=== PATIENT | female | born 1955 | race Caucasian/White ===

== ENCOUNTER → 2016-08-25 | Day surgery (SDC) | payer OTHER ==
[~2016-08-25] MED LIST: ACTOS30 MG PO; ALDACTONE25 MG PO; ALPRAZOLAM; ASPIRIN; ASPIRIN81 M1 PO; ASPIRIN81 M2 PO; ATENOLOL; ATENOLOL50 MG PO; CRESTOR PO; FLEXERIL10 M1 PO; GABAPENTIN600 MG PO; GLUCOTROL PO; GLYBURIDE-METFO1 TA4 PO; HAIR,SKIN,NAILS; JANUVIA PO; LANTUS100 U/ML SUBQ; LASIX20 MG PO; LEVOTHROID50 MCG PO; LEVOTHYROXINE50 MCG PO; LEXAPRO; LEXAPRO20 MG PO; LIPITOR20 MG PO; LODINE400 M1 PO; LORTAB 7.5-5001 TAB; LYRICA PO; MEGA BIOTIN10000 MCG PO; MELOXICAM15 MG PO; METAGLIP 2.5/501 TAB; METAGLIP 5/5001 TAB; METFORMIN HCL500 M3 PO; METFORMIN PO; MOBIC; MULTI VITAMIN1 EACH PO; NOVOLIN N100 UNIT/1; NOVOLIN N100 UNIT/1 SUBQ; NOVOLIN R100 UNITS/ SUBQ; OMNICEF300 MG PO; OSTEO BI FLEX; PANTOPRAZOLE SO40 MG PO; PHENERGAN25 MG PO; PRILOSEC20 MG PO; SERTRALINE HCL50 M1 PO; SILVADENE TOP; VITAMIN D 22000 UNIT PO; VOLTAREN50 MG PO; XANAX1 MG PO; ZESTORETIC 10/11 TAB; ZESTRIL5 MG PO
--- NOTE | ~2016-08-25 | OR ---
Unit #: [id number] #: [id number] Patient: CHERELLE RIVERA [id number] [address] [address] [id number] O MR#: [id number] NAME: CHERELLE RIVERA ROOM: Date of Procedure: 08/25/2016 Admission Date: 08/25/2016 Surgeon: Dave Remy M.D. : 1955 Attending Physician: Dave Remy M.D. Primary Care Physician: Jose Casey M.D. OPERATIVE REPORT PREOPERATIVE DIAGNOSES Back pain, radiculopathy, spinal stenosis, spondylolisthesis, degenerative disk disease. POSTOPERATIVE DIAGNOSES Back pain, radiculopathy, spinal stenosis, spondylolisthesis, degenerative disk disease. PROCEDURE PERFORMED Lumbar epidural steroid injection with intravenous sedation and fluoroscopic guidance for needle localization. INDICATIONS FOR PROCEDURE The patient is a 61-year-old female with worsening back greater than left lower extremity pain. She has multilevel multifactorial degenerative disk and spine disease. She has spondylolisthesis, moderately severe stenosis, and neuroforaminal stenosis at the L4-L5 greater than L5-S1 levels. She failed to settle with extensive attempts at conservative treatment. Plan is for trial of epidural steroids. Risks and benefits of all have been reviewed. DESCRIPTION OF PROCEDURE The patient was placed in a seated position. Standard monitors were applied. 4 mg of Versed were given in divided doses for anxiolysis and sedation, which were adequate. Vital signs remained stable. Sterile prep and drape then of the lumbar area was performed. The skin then at the L5 level was localized with 1% lidocaine. An 18-gauge [employer] needle was then advanced via loss of resistance technique and fluoroscopic guidance in toward the epidural space. After confirming proper positioning with fluoroscopy and radiographic contrast, 80 mg of Depo-Medrol and 4 mL of 0.125% bupivacaine were deposited. The patient tolerated the procedure otherwise well and was discharged to recovery room in stable condition. Dictated by... Dave Remy M.D. LHP/modl TD: 08/26/2016 00:11 Unit #: [id number] #: [id number] Patient: CHERELLE RIVERA JOB #: [id number] OPERATIVE REPORT Page 1 of 1 X Dave Remy MD X PROCEDURE OPERATIVE NOTE
== END | disposition home or self-care (01) ==
LOC: CCSC 08:53
DX: M51.16 Intervertebral disc disorders with radiculopathy, lumbar region (principal); M43.16 Spondylolisthesis, lumbar region; M48.06 Spinal stenosis, lumbar region; E11.9 Type 2 diabetes mellitus without complications; I73.9 Peripheral vascular disease, unspecified
CPT/HCPCS: 82947; J1040; J2250

== ENCOUNTER → 2016-10-11 | Day surgery (SDC) | payer OTHER ==
--- NOTE | ~2016-10-11 | OR ---
Unit #: [id number] #: [id number] Patient: CHERELLE RIVERA [id number] [address] [place], [place] [address] [id number] O MR#: [id number] NAME: CHERELLE RIVERA ROOM: Date of Procedure: 10/11/2016 Admission Date: 10/11/2016 Surgeon: Dave Remy M.D. : 1955 Attending Physician: Dave Remy M.D. Primary Care Physician: Jose Casey M.D. OPERATIVE REPORT PREOPERATIVE DIAGNOSES Spinal stenosis, spondylolisthesis, degenerative disk disease, back pain, radiculopathy. POSTOPERATIVE DIAGNOSES Spinal stenosis, spondylolisthesis, degenerative disk disease, back pain, radiculopathy. PROCEDURE PERFORMED Lumbar epidural steroid injection with intravenous sedation and fluoroscopic guidance for needle localization. INDICATIONS FOR PROCEDURE The patient is a 61-year-old female with back greater than left lower extremity pain. She failed to settle with conservative treatment. Workup demonstrated multilevel degenerative disk disease, severe at the L4-L5 level. There also was spondylolisthesis, facet disease, and severe neural foraminal stenosis. Plan is for trial of epidural steroids. Initial injection at the L5-S1 level did not result in substantial change in her back pain and help the leg pain somewhat. Plan is to repeat an injection today at an entry level paralegal slight higher in her lumbar spine. DESCRIPTION OF PROCEDURE The patient was placed in a seated position. Standard monitors were applied. 4 mg of Versed were given for sedation and anxiolysis, which were adequate. Vital signs remained stable. Sterile prep and drape then of lumbar area was performed. Skin at the L3-L4 level was localized with 1% lidocaine. An 18-gauge [place] needle was then advanced via loss of resistance technique and fluoroscopic guidance in toward the epidural space. After confirming proper positioning with fluoroscopy and radiographic contrast, 80 mg of Depo-Medrol and 4 mL of 0.125% bupivacaine were deposited. The patient tolerated the procedure otherwise well and was discharged to recovery room in stable condition. Dictated by... Dave Remy M.D. LHP/hankl TD: 10/11/2016 11:02 Unit #: [id number] #: [id number] Patient: CHERELLE RIVERA JOB #: [id number] OPERATIVE REPORT Page 1 of 1 X Dave Remy MD X PROCEDURE OPERATIVE NOTE
== END | disposition home or self-care (01) ==
LOC: CCSC 09:26
DX: M51.16 Intervertebral disc disorders with radiculopathy, lumbar region (principal); M99.73 Connective tissue and disc stenosis of intervertebral foramina of lumbar region; M43.16 Spondylolisthesis, lumbar region; E11.9 Type 2 diabetes mellitus without complications; I73.9 Peripheral vascular disease, unspecified; Z79.82 Long term (current) use of aspirin; Z79.4 Long term (current) use of insulin; Z79.899 Other long term (current) drug therapy
CPT/HCPCS: 82947; J1040; J2250